=== PATIENT | female | born 1990 | race Two or more races ===

== ENCOUNTER 2020-04-05 22:44 | Emergency (ER) | payer OTHER ==
[~2020-04-05] VITALS: Ht 170.2 cm; Wt 127.0 kg
--- NOTE | 2020-04-05 23:52 | NUR ---
BIBS FOR C/O L FOOT PAIN AND YANDY S/P A PIECE OF MARBLE FELL ON HIS FOOT WHILE CLEANING THE GARAGE. PT WAS ASSISTED TO THE BED VIA W/C. VSS. WILL CONT TO MONITOR ,
[2020-04-06] MEDS ORDERED: HYDROCODONE/APAP 5/325MG TABLET ONE (00:51)
[2020-04-06] MEDS: HYDROCODONE/APAP 5/325MG TABLET PO ONE (00:54)
--- NOTE | 2020-04-06 01:10 | NUR ---
Patient discharged to home in stable condition. Written and verbal after care instructions given. Patient verbalizes understanding of instruction. Pt provided with tello wrap and crutches, gait training performed
[2020-04-06 01:13] VITALS: BP 128/79
== END 2020-04-06 01:10 | disposition home or self-care (01) ==
LOC: ER 22:50
DX: S93.692A Other sprain of left foot, initial encounter (principal); Z90.89 Acquired absence of other organs; Z98.890 Other specified postprocedural states; W20.8XXA Other cause of strike by thrown, projected or falling object, initial encounter; Y93.E8 Activity, other personal hygiene; Y92.89 Other specified places as the place of occurrence of the external cause; Y99.8 Other external cause status
CPT/HCPCS: 73630-TC

== ENCOUNTER 2024-02-12 08:16 | Emergency (ER) | payer OTHER ==
[~2024-02-12] VITALS: Ht 170.2 cm; Wt 113.4 kg
[2024-02-12 08:47] VITALS: BP 125/84; TEMP 97.9; O2SAT 100
[2024-02-12 09:32] LABS: PREGNANCY TEST URINE QUAL NEGATIVE (NEGATIVE)
[2024-02-12] MEDS ORDERED: NEO/5DRO18 LEFTEYE (09:42)
== END 2024-02-12 10:11 | disposition home or self-care (01) ==
LOC: ER 08:32
DX: H57.12 Ocular pain, left eye (principal); Z90.49 Acquired absence of other specified parts of digestive tract
CPT/HCPCS: 84703-TC